=== PATIENT | female | born 1965 | race Caucasian/White ===

== ENCOUNTER → 2023-09-18 06:30 | Day surgery (SDC) | payer OTHER, SELFPAY ==
[2023-09-18 08:32] LABS: Glucose - Point of Care 151 mg/dl (70-99)
== END ==
LOC: GI 06:30
PROVIDERS: ATTENDING PHYSICIAN Internal Medicine
DX: Z12.11 Encounter for screening for malignant neoplasm of colon (principal); K64.9 Unspecified hemorrhoids; D17.5 Benign lipomatous neoplasm of intra-abdominal organs; Z86.010 Personal history of colon polyps
CPT/HCPCS: 45380; 88305; 82962

== ENCOUNTER 2023-10-09 20:07 | Emergency (ER) | payer OTHER, SELFPAY ==
[2023-10-09 20:33] LABS: % Basophils 0.5 % (0-2); % Eosinophils 1.8 % (0-6); % Immature Granulocytes 0.3 % (0-0.5); % Lymphocytes 30.6 % (20.5-51.1); % Monocytes 7.6 % (1.7-9.3); % Neutrophils 59.2 % (42.2-75.2); Absolute Eosinophils 0.1 10^3/uL (0-0.7); Absolute Lymphocytes 2.3 10^3/uL (1.2-3.4); Absolute Monocytes 0.6 10^3/uL (0.1-0.6); Absolute Neutrophils 4.4 10^3/uL (1.4-6.5); Hematocrit 37.2 % (37.0-47.0); Hemoglobin 13.5 g/dL (12.0-16.0); Mean Corp Hgb Conc. 36.3 g/dL (33.0-37.0); Mean Corpuscular Hgb 29.7 pg (27.0-31.0); Mean Corpuscular Volume 81.8 fL (81.0-99.0); Mean Platelet Volume 10.2 fL (7.4-10.4); Nucleated Red Blood Cells % 0 %; Platelet Count 244 10^3/uL (130-400); Red Blood Cell Count 4.55 10^6/uL (4.20-5.40); White Blood Cell Count 7.4 10^3/uL (4.8-10.8)
[2023-10-09 20:53] LABS: ALT (SGPT) 44 U/L (0-35); AST (SGOT) 53 U/L (14-36); Albumin 4.3 g/dl (3.5-5.0); Alkaline Phosphatase 60 U/L (38-126); Blood Urea Nitrogen 17 mg/dl (7-17); Carbon Dioxide 22 mmol/L (22-30); Chloride 106 mmol/L (98-107); Glucose 235 mg/dl (70-99); Sodium 136 mmol/L (135-145); Total Bilirubin 0.9 mg/dl (0.2-1.3); Total Protein 6.7 g/dl (6.3-8.2); eGFR > 60.00
[2023-10-09 20:58] LABS: Troponin I < 0.012 ng/ml
[2023-10-09 21:19] VITALS: BP 139/72
[2023-10-09 21:26] VITALS: BMI 31.8
--- NOTE | 2023-10-09 21:33 | ED.GENMED ---
History of Present Illness
General
Chief Complaint: Heart Rate Problem
Source: patient
Exam Limitations: none
Time Seen by Provider: 10/09/23 21:19
Travel History
Have you had any contact with someone who has COVID-19?: No
Do you have any symptoms of coronavirus? Fever > 100 degrees, chills, cough, shortness of breath, sore throat, loss of taste or smell, muscle aches, or headache?: No
History of Present Illness
History of Present Illness:
See MDM
Past History
Past History
ED Past Medical History: Arrthythmia (SVT), GERD, HTN, Hypercholesterolemia, NIDDM and Other ( Pancreatic cyst, headache, PNA, Ovarian cyst, Meniere disease , PNA, )
ED Past Surgical History: None, Cardiac (Cardiac ablation for SVT), Cholecystectomy and Orthopedic (Hip labrum tear. left hip replacement, Right knee surgery)
Social History
Tobacco: Non-smoker
Alcohol: Occasional
Drug: None
Personal:
Living: with family
Phy Exam
Physical Exam
Physical Exam:
See MDM
Course
Orders/Labs/Results
Orders:
Orders
10/09/23 20:09
EKG [Electrocardiogram (*1)] Urgent
Reason for Study: Shortness of Breath
10/09/23 20:10
EKG- Treatment ONCE
10/09/23 20:16
IV Insert/Care/Rem.- Treatment PRN
10/09/23 20:22
Complete Blood Count/With Diff Urgent
Comprehensive Metabolic Panel Urgent
Troponin I Urgent
Abnormal Lab Results
10/09/23
20:22
Glucose 235 H mg/dl
(70-99)
AST 53 H U/L
(14-36)
ALT 44 H U/L
(0-35)
10/09/23 20:22
10/09/23 20:22
Vital Signs
Initial and Last Documented VS:
Initial Vital Signs
Temp Pulse Resp Pulse Ox
98.2 F 72 17 100
10/09/23 20:11 10/09/23 20:11 10/09/23 20:11 10/09/23 20:11
Last Documented Vital Signs
Temp Pulse Resp BP Pulse Ox
98.2 F 66 20 139/72 100
10/09/23 20:11 10/09/23 21:19 10/09/23 21:19 10/09/23 21:19 10/09/23 20:11
MDM/Problems Addressed
Differential Diagnosis Includes:
HPI and MDM Narrative:
57-year-old female presenting with palpitations. Patient states she felt off and felt funny while she was cooking dinner. She went up to lay down in bed and noted that her heart rate was jumping up and down. She used her edelight demetria and it said
'possibly A-fib'. She did talk to the performance engineer and they discussed going to the emergency department versus making an appointment. She chose to come to the emergency department for evaluation because she does not feel fine
Patient currently in sinus rhythm. She is a history of A-fib status post ablation. She is no longer on Eliquis but she is on a beta-kathy. I discussed her elevated blood sugar and she has PCP appointment tomorrow to further discuss this.
Patient states she feels comfortable knowing that blood work showed no significant abnormality and EKG is a sinus rhythm. Patient will call her performance engineer for outpatient follow-up
Physical exam
General: Well appearing and non-toxic
HEENT: protecting airway. Mildly dry mucous membranes
Neck: appears supple
CV: No evidence of cyanosis. Regular rate and rhythm
Resp: No accessory muscle use
Abd: Non-distended
Extremities: No deformities. No leg edema
Neuro: alert
Psych: Normal affect
Skin: Intact
Problems Addressed including Acute and Chronic Conditions affecting care:
1. Palpitations
Acuity: acute
Prognosis: stable
Details: Patient currently in sinus rhythm. Discussed continuing her beta-kathy and calling her performance engineer
2. Hyperglycemia
Acuity: acute
Prognosis: stable
Details: She has follow-up with PCP for this
Differential Diagnosis (but not limited to): A-fib, SVT, dehydration
Testing considered: Second troponin which denies chest pain
Drug therapy (if applicable): OTC meds, please see d/c instruction regarding Rx drugs
Amount and/or Complexity of Data Reviewed
Clinical info obtained from: Patient
External data reviewed: N/A
Labs I independently reviewed (but not limited to): Troponin normal, hyperglycemia
Radiology: N/A
Pulse Ox: not hypoxic
EKG independently reviewed: Sinus rhythm, normal axis, no STEMI
Electrical Continuity Inspector: N/A
Critical Care: N/A
Risk of Complication:
Social Determinants of health: Good social support
Discussed with other providers: N/A
Escalation of Care includes Admit/Obs: After being observed in the Emergency Department, pt stable for discharge.
Occasional wrong word or 'sound a like' substitutions may have occurred due to the inherent limitations of voice recognition software. Read the chart carefully and recognize, using context, where substitutions have occurred.
*Critical Care Note
Total Time (30-74mins, 75-104mins- exclusive of procedures): Not Applicable
ED Attending Note
-
Portions of this chart may have been created with voice recognition software.� Occasional wrong word or��sound alike� substitutions may have occurred due to the inherent limitations of voice recognition software.
Discharge Plan
Departure
Patient Disposition: Home (Routine Discharge)
Date of Disposition: 10/09/23
Time of Disposition: 21:46
Patient with high blood pressure during this ER visit?: No
Discharge Problem:
Heart palpitations, Hyperglycemia
Instructions: Palpitations (DC)
Prescriptions:
No Action
metformin 750 MG tablet extended release 24 hr
1,500 mg PO DAILY
fenofibrate 160 MG tablet
160 mg PO DAILY
rosuvastatin 10 MG tablet
10 mg PO DAILY
cholecalciferol (vitamin D3) 2,000 UNITS tablet
4,000 units PO DAILY
Trulicity 1.5 MG/0.5 ML pen injector
1.5 mg SQ WE
losartan 50 MG tablet
50 mg PO DAILY Qty: 0 0RF
Eliquis 5 mg tablet
10 mg PO BID 7 Days Qty: 28 0RF
metoprolol succinate 25 mg Tablet Extended Release 24 Hr
25 mg PO DAILY
cephalexin 500 mg capsule
500 mg PO BID 7 Days Qty: 14 0RF
Activity Restrictions/Additional Instructions:
Please return for any worsening symptoms.
You may return at any time if you have further concerns.
Please follow up with your doctor at the first available appointment, preferably this week.
Please make an appointment with your performance engineer.
Thank you for choosing [facility].
Interventions
Interventions:
*Risk Screen - Suicide Last Done: 10/09/23 20:11
*General Assessment Last Done: 10/09/23 20:11
*Neglect/Abuse Screening Last Done: 10/09/23 20:11
ED- Fall Risk Assessment Last Done: 10/09/23 21:19
*ED COVID-19 Vaccine History Last Done: 10/09/23 20:11
ED- Cardiac Assessment Last Done: 10/09/23 21:19
ED- Pulmonary Assessment Last Done: 10/09/23 21:19
[2023-10-09 21:51] VITALS: BP 131/62
== END 2023-10-09 22:00 | disposition home or self-care (01) ==
LOC: EMR 20:07
PROVIDERS: Emergency Medicine; EMERGENCY PHYSICIAN Student in an Organized Health Care Education/Training Program; FAMILY PHYSICIAN Family Medicine
DX: R00.2 Palpitations (principal); E11.65 Type 2 diabetes mellitus with hyperglycemia; I47.10 Supraventricular tachycardia, unspecified; K21.9 Gastro-esophageal reflux disease without esophagitis; I10 Essential (primary) hypertension; E78.00 Pure hypercholesterolemia, unspecified; H81.09 Meniere's disease, unspecified ear
CPT/HCPCS: 99283; 80053; 84484; 85025; 93005

== ENCOUNTER → 2024-01-05 12:01 | Outpatient (REF) | payer OTHER, SELFPAY | LOC: HWWDC 12:01 | PROVIDERS: ATTENDING PHYSICIAN Obstetrics & Gynecology; FAMILY PHYSICIAN Family Medicine | DX: Z12.31 Encounter for screening mammogram for malignant neoplasm of breast (principal) | CPT/HCPCS: 77063; 77067 ==

== ENCOUNTER → 2024-05-21 18:13 | Outpatient (REF) | payer OTHER, SELFPAY | LOC: PAVMRI 18:13 | PROVIDERS: ATTENDING PHYSICIAN Physician Assistant Medical; FAMILY PHYSICIAN Family Medicine | DX: Z96.642 Presence of left artificial hip joint (principal); M25.552 Pain in left hip | CPT/HCPCS: 73721 ==

== ENCOUNTER 2024-05-26 19:39 | Emergency (ER) | payer OTHER, SELFPAY ==
[2024-05-26] VITALS (8 sets, daily range): BP systolic 101–156; BP diastolic 56–69; PULSE 59–60
[2024-05-26 20:12] LABS: % Basophils 0.5 % (0-2); % Eosinophils 1.4 % (0-6); % Immature Granulocytes 0.2 % (0-0.5); % Lymphocytes 30.1 % (20.5-51.1); % Monocytes 8.7 % (1.7-9.3); % Neutrophils 59.1 % (42.2-75.2); Absolute Eosinophils 0.1 10^3/uL (0-0.7); Absolute Lymphocytes 1.9 10^3/uL (1.2-3.4); Absolute Monocytes 0.6 10^3/uL (0.1-0.6); Absolute Neutrophils 3.8 10^3/uL (1.4-6.5); Hemoglobin 12.7 g/dL (12.0-16.0); Mean Corp Hgb Conc. 34.3 g/dL (33.0-37.0); Mean Corpuscular Hgb 29.1 pg (27.0-31.0); Mean Corpuscular Volume 84.9 fL (81.0-99.0); Mean Platelet Volume 10.1 fL (7.4-10.4); Nucleated Red Blood Cells % 0 %; Platelet Count 229 10^3/uL (130-400); Red Blood Cell Count 4.36 10^6/uL (4.20-5.40); Red Cell Dist. Width 13.8 % (11.5-14.5); White Blood Cell Count 6.3 10^3/uL (4.8-10.8)
[2024-05-26 20:37] LABS: ALT (SGPT) 22 U/L (0-35); AST (SGOT) 30 U/L (14-36); Albumin 4.2 g/dl (3.5-5.0); Alkaline Phosphatase 56 U/L (38-126); Blood Urea Nitrogen 22 mg/dl (7-17); Calcium 9.7 mg/dl (8.4-10.2); Carbon Dioxide 27 mmol/L (22-30); Chloride 103 mmol/L (98-107); Glucose 123 mg/dl (70-99); Potassium 3.7 mmol/L (3.5-5.1); Sodium 142 mmol/L (135-145); Total Bilirubin 0.6 mg/dl (0.2-1.3); Total Protein 6.5 g/dl (6.3-8.2); Troponin I < 0.012 ng/ml; eGFR > 60.00
--- NOTE | 2024-05-26 22:21 | ED.GENMED ---
History of Present Illness
General
Chief Complaint: Heart Rate Problem
Source: patient
Exam Limitations: none
Time Seen by Provider: 05/26/24 22:11
Nursing documentation reviewed up to this point in time: agreed with
History of Present Illness
History of Present Illness:
This is a 58-year-old woman with history of SVT status post ablation 2022. She follows with Dr. Mehnaz Camacho. She also has history of M�ni�re's disease status post vestibulotomy and does admit to some chronic issues with M�ni�re's which is
generally described as intermittent feelings of off balance as well as intermittent nausea. She generally does not get vertigo/spinning issues.
She has history of cui-[id number] diabetes, hyperlipidemia, hypertension.
She admits to overall not feeling well throughout the day today, feeling 'off' which she attributed to the weather being somewhat warm today. Tonight however while making dinner she began to feel worse, somewhat lightheaded and felt that she was
going to pass out, quickly needing to sit down. She called her pipe smoking machine offbearer office and attempted to use her CardioNet device which was not functioning. She then noticed that her smart watch recorded her heart rate throughout the day as 100-120
bpm. She denies feeling palpitations or sense that her heart was beating rapidly.
She was recommended to come to the ED for evaluation.
She has had no nausea or vomiting, no diarrhea or constipation. She has not been skipping meals.
No fever no chills, no nasal congestion or sore throat, no headache, no chest pain or cough or shortness of breath.
Upon review of records patient evaluated in this ED September 2023 with complaints of palpitations and overall feeling 'off and feeling funny while cooking dinner, needing to lie down' Overall the symptoms seem similar to symptoms she presents with
tonight. Unremarkable ED visit at that time including unremarkable laboratory studies, unremarkable EKG showing sinus rhythm, sinus bradycardia.
Past History
Past History
ED Past Medical History: Arrthythmia (SVT), GERD, HTN, Hypercholesterolemia, NIDDM and Other ( Pancreatic cyst, headache, PNA, Ovarian cyst, Meniere disease , PNA)
ED Past Surgical History: Cardiac (Cardiac ablation for SVT 2022), Cholecystectomy and Orthopedic (Hip labrum tear. left hip replacement, Right knee surgery)
Social History
Tobacco: Non-smoker
Alcohol: Occasional
Drug: None
Personal:
Living: with family
Employment: Retired
Family History
Family History: Other (Noncontributory)
Phy Exam
Physical Exam
Physical Exam:
GENERAL: 58-year-old woman appears her stated age, bright and alert, pleasant, appears in no acute distress.
EYE: pupils equal and reactive. Extraocular muscles intact. Anicteric
NECK: Supple, nontender, no meningismus, no significant adenopathy.
ENT: posterior pharynx is clear, oral mucosa is moist. TM clear b/l, nares patent.
CARDIAC: Regular rate and rhythm. no murmur.
LUNGS: Clear breath sounds bilaterally, no acute respiratory distress, no wheezes/rales/rhonchi
ABDOMEN: Soft, nondistended, without focal tenderness, normoactive BS.
NEUROLOGICAL: Alert and oriented x3, no focal neuro deficits. Gait is steady.
SKIN: Warm and dry, normal color, skin intact. No rash.
MUSCULOSKELETAL: No C/C/E. peripheral pulses are full and equal b/l. No palpable tenderness.
PSYCH: Normal and appropriate interaction.
Course
Orders/Labs/Results
Orders:
Orders
05/26/24 19:43
ECG [Electrocardiogram (*1)] Urgent
Reason for Study: Bradycardia / Tachycardia
EKG- Treatment ONCE
05/26/24 19:44
Cardiac Monitoring- Treatment ONCE
O2 Therapy [RESP] Urgent
Titrate/Wean O2 to maintain O2 sat greater than (%): 90
Special Instructions: Maintain sats >/=90%
Pulse Ox/spot Check [RESP] Urgent
Quantity: 1
Special Instructions: ON ROOM AIR
05/26/24 20:06
Complete Blood Count/With Diff Urgent
Comprehensive Metabolic Panel Urgent
Troponin I Urgent
05/26/24 22:13
Orthostatic VS- Treatment ONCE
Abnormal Lab Results
05/26/24
20:06
BUN 22 H mg/dl
(7-17)
Glucose 123 H mg/dl
(70-99)
05/26/24 20:06
05/26/24 20:06
Vital Signs
Initial and Last Documented VS:
Initial Vital Signs
Temp Pulse Resp BP Pulse Ox
98.5 F 63 19 156/69 100
05/26/24 19:42 05/26/24 19:42 05/26/24 19:42 05/26/24 19:42 05/26/24 19:42
Last Documented Vital Signs
Temp Pulse Resp BP Pulse Ox
98.5 F 55 17 110/68 97
05/26/24 19:42 05/26/24 23:15 05/26/24 23:15 05/26/24 23:11 05/26/24 23:15
MDM/Problems Addressed
Differential Diagnosis Includes:
Concern for intermittent tachyarrhythmia such as A-fib/SVT, orthostasis, dehydration, exacerbation of M�ni�re's disease.
Thus far laboratory studies unremarkable including negative troponin.
EKG shows sinus bradycardia without ectopy.
hall monitor shows normal sinus rhythm, sinus bradycardia without arrhythmia.
Patient is overall well in appearance.
Will check orthostatic vital signs.
Chronic conditions affecting care: DM, HTN, Arrhythmia and Other (M�ni�re's disease)
*Pulse Oximetry
Patient hypoxic: no
*EKG
Interpreted by ED Provider?: Yes
Interpretation: normal
Comparison EKG: no changes (Unchanged from previous September 2023)
Rate: bradycardiac
Rhythm: sinus
[place]: normal axis
Interval: normal interval
QRS Pattern: normal QRS
Ischemia: no ischemia
*Oral Pathologist Interpretation
Rate: bradycardiac
Interpretation: normal
Rhythm: sinus
*Critical Care Note
Total Time (30-74mins, 75-104mins- exclusive of procedures): Not Applicable
Update Note
Update Note:
Orthostatic vital signs are negative.
Monitor continues to show sinus bradycardia, normal sinus rhythm.
Discharge to home with recommendations to stay well-hydrated on a daily basis.
Avoid hot environments.
Follow-up with PCP as well as pipe smoking machine offbearer.
ED Attending Note
-
Portions of this chart may have been created with voice recognition software.� Occasional wrong word or��sound alike� substitutions may have occurred due to the inherent limitations of voice recognition software.
Discharge Plan
Departure
Patient Disposition: Home (Routine Discharge)
Date of Disposition: 05/26/24
Time of Disposition: 23:41
Patient with high blood pressure during this ER visit?: No
Condition: Good
Discharge Problem:
Near syncope
Instructions: Near Fainting (DC)
Prescriptions:
No Action
metformin 750 MG tablet extended release 24 hr
1,500 mg PO DAILY
fenofibrate 160 MG tablet
160 mg PO DAILY
rosuvastatin 10 MG tablet
20 mg PO DAILY
cholecalciferol (vitamin D3) 2,000 UNITS tablet
4,000 units PO DAILY
Trulicity 1.5 MG/0.5 ML pen injector
4.5 mg SQ WE
losartan 50 MG tablet
50 mg PO DAILY Qty: 0 0RF
metoprolol succinate 25 mg Tablet Extended Release 24 Hr
25 mg PO DAILY
Referrals:
Damaso Martin DO [Family Provider] - Call in 1-3 days for appt
Mehnaz Camacho MD [Active] - Call in 1-3 days for appt
Interventions
Interventions:
*Risk Screen - Suicide Last Done: 05/26/24 19:42
*General Assessment Last Done: 05/26/24 22:13
*Neglect/Abuse Screening Last Done: 05/26/24 19:42
ED- Fall Risk Assessment Last Done: 05/26/24 22:13
*ED COVID-19 Vaccine History Last Done: 05/26/24 22:13
ED- Cardiac Assessment Last Done: 05/26/24 22:13
ED- Pulmonary Assessment Last Done: 05/26/24 22:13
Discharge Date and Time
Print Language: POLISH
== END 2024-05-26 23:55 | disposition home or self-care (01) ==
LOC: EMR 19:39
PROVIDERS: Emergency Medicine; EMERGENCY PHYSICIAN Emergency Medicine; FAMILY PHYSICIAN Family Medicine
DX: R55 Syncope and collapse (principal); E11.9 Type 2 diabetes mellitus without complications; E78.00 Pure hypercholesterolemia, unspecified; I10 Essential (primary) hypertension; K21.9 Gastro-esophageal reflux disease without esophagitis; H81.09 Meniere's disease, unspecified ear; K86.2 Cyst of pancreas; M19.90 Unspecified osteoarthritis, unspecified site; K76.0 Fatty (change of) liver, not elsewhere classified; Z79.84 Long term (current) use of oral hypoglycemic drugs; Z96.642 Presence of left artificial hip joint; Z87.01 Personal history of pneumonia (recurrent); Z90.49 Acquired absence of other specified parts of digestive tract; Z88.2 Allergy status to sulfonamides; Z88.8 Allergy status to other drugs, medicaments and biological substances; Z86.718 Personal history of other venous thrombosis and embolism
CPT/HCPCS: 99284; 94760; 80053; 84484; 85025; 93005

== ENCOUNTER → 2024-06-09 10:21 | Outpatient (REF) | payer OTHER, SELFPAY | LOC: RCS 10:21 | PROVIDERS: ATTENDING PHYSICIAN Internal Medicine Cardiovascular Disease; FAMILY PHYSICIAN Family Medicine | DX: R42 Dizziness and giddiness (principal); R00.2 Palpitations; R55 Syncope and collapse | CPT/HCPCS: 93225; 93226 ==

== ENCOUNTER → 2024-09-03 08:22 | Outpatient (REF) | payer OTHER, SELFPAY | LOC: RCS 08:22 | PROVIDERS: ATTENDING PHYSICIAN Internal Medicine Cardiovascular Disease; FAMILY PHYSICIAN Family Medicine | DX: R07.9 Chest pain, unspecified (principal) | CPT/HCPCS: 93017; 93350 ==

== ENCOUNTER → 2025-05-31 18:07 | Outpatient (REF) | payer OTHER, SELFPAY | LOC: PAVMRI 18:07 | PROVIDERS: ATTENDING PHYSICIAN Orthopaedic Surgery; FAMILY PHYSICIAN Family Medicine | DX: Z96.642 Presence of left artificial hip joint (principal) | CPT/HCPCS: 73721 ==